=== PATIENT | male | born 1965 | race Caucasian/White ===

== ENCOUNTER 2019-04-10 09:32 | Day surgery (SDC) | payer OTHER, SELFPAY ==
[2019-04-09 15:42] VITALS: BMI 31.1
[2019-04-10 10:34] VITALS: BP 128/85; PULSE 73; RESP 18; TEMP 36.6; O2SAT 96
--- NOTE | 2019-04-10 10:38 | PM.HPUD ---
H&P update H&P Update: DATE OF SURGERY/PROCEDURE: 04/10/19 DATE H&P PERFORMED: 04/04/19 H&P UPDATE INFORMATION: H&P completed within last 30 days and No changes to prior documentation PREOP DIAGNOSIS: Screening colonoscopy and history of abdominal pain PLANNED PROCEDURE: Operation Date: 04/10/19 11:00 Proposed Procedures p Colonoscopy 57355 R10.9(Not Applicable) - Nam Dobson MD Full H&P Perinent History: Medical/Surgical History: Medical History (Updated 04/05/19 @ 09:12 by Nam Dobson MD) GERD (gastroesophageal reflux disease) (Acute) Hyperlipidemia (Acute) Family History: Family History (Updated 04/04/19 @ 10:21 by Hyacinth Treviño RN) Father Cancer Diabetes Mother Cancer Breast Grandmother Parkinson disease Denies family history of Anesthesia complication Bleeding disorder Social History: Social History Smoking and tobacco status: former smoker Quit status (tobacco): has quit using tobacco Second hand smoke exposure: No Alcohol intake: current Alcohol intake frequency: few times a week Adopted: No Caregiver/support person: No Lives independently: Yes Household members: none Housing: House Marital status: Highest education level completed: High School Graduate service: No Current occupational status: employed Current occupation: self employeed. Current occupational exposures/hazards: No Pets and animals: No History of recent travel: No Leisure activites: hunting and fishing Sexually active: Yes Are you practicing safe sex: Yes Current gender identity: Male Brooke/Faith: Oriental Orthodox Special brooke needs: No Agree to transfusion: No Financial difficulty paying for basics: Decline to Answer
[2019-04-10] MEDS: sodium chloride 0.9% 1,000 ML 30 ML (10:40)
--- NOTE | 2019-04-10 10:51 | ANES.PREANES ---
Pre-Anesthetic Assessment Pre-Anesthetic Assessment: Height/Weight: Height 1.83 m Weight 104.326 kg Temp Pulse Resp BP Pulse Ox 97.8 F 73 18 128/85 96 04/10/19 10:34 04/10/19 10:34 04/10/19 10:34 04/10/19 10:34 04/10/19 10:34 Preop Diagnosis: Screening colonoscopy and history of abdominal pain Proposed Procedure: Operation Date: 04/10/19 11:00 Proposed Procedures p Colonoscopy 48623 R10.9(Not Applicable) - Nam Dobson MD Was Beta Steven taken within 24 hours: N/A Last intake: Intake Last Liquid Date 04/09/19 Last Liquid Time 21:00 Last Solid Date 04/09/19 Last Solid Time 11:30 Social: Social History: No alcohol and No tobacco (quit 1 yr ago. was 1 pack/day) Exam: Pre-Anes Outpt Exam: alert, oriented x 3, clear to auscultation bilaterally and regular rate & rhythm Airway: Submandibular: WNL MP: 2 Dentition: Full History/ROS: No significant history except as noted and No significant complaints Pulmonary: Pulmonary: Sleep apnea (possible, never been tested. ) CV/HEM: CV/HEM: None reported : Comments: nocturia, frequency GI: GI: GERD (controlled) Metabolic: Metabolic: None reported Musc/skel: Musc/skel: None reported Neuropsych: Neuropsych: SANDRA Anesthetic Plan: ASA status: II Anesthesia: MAC Risk of > 500 ml blood loss (7ml/kg in children): No PFSH Anesthesia PFSH: Social History Smoking and tobacco status: former smoker Quit status (tobacco): has quit using tobacco Second hand smoke exposure: No Alcohol intake: current Alcohol intake frequency: few times a week Adopted: No Caregiver/support person: No Lives independently: Yes Household members: none Housing: House Marital status: Highest education level completed: High School Graduate service: No Current occupational status: employed Current occupation: self employeed. Current occupational exposures/hazards: No Pets and animals: No History of recent travel: No Leisure activites: hunting and fishing Sexually active: Yes Are you practicing safe sex: Yes Current gender identity: Male Brooke/Pentecostalism: Episcopal Special brooke needs: No Agree to transfusion: No Financial difficulty paying for basics: Decline to Answer Data Anesthesia Cardiac Studies: No Data to Display
[2019-04-10 12:04] VITALS: BP 119/89; PULSE 111; RESP 16; TEMP 36.4; O2SAT 93
[2019-04-10 12:10] VITALS: BP 100/77; PULSE 98; RESP 18; O2SAT 93
== END 2019-04-10 12:33 | disposition home or self-care (01) ==
PROVIDERS: Family Provider Family Medicine; PCP Family Medicine; Visit Provider Surgery
PROC: 0DJD8ZZ Inspection of Lower Intestinal Tract, Via Natural or Artificial Opening Endoscopic (ICD-10-PCS; CPT 45378; principal; 2019-04-10 11:00)
DX: Z12.11 Encounter for screening for malignant neoplasm of colon (principal); K57.30 Diverticulosis of large intestine without perforation or abscess without bleeding; Q27.33 Arteriovenous malformation of digestive system vessel; K21.9 Gastro-esophageal reflux disease without esophagitis; E78.5 Hyperlipidemia, unspecified; Z87.891 Personal history of nicotine dependence; G47.30 Sleep apnea, unspecified; Z79.891 Long term (current) use of opiate analgesic; Z83.3 Family history of diabetes mellitus
CPT/HCPCS: 12345; 45378; 96365; J2001; J2704; J7030

== ENCOUNTER → 2019-06-25 09:56 | Outpatient (BNVA) | payer OTHER, SELFPAY | PROVIDERS: Family Provider Family Medicine; PCP Family Medicine; Referring Provider Family Medicine; Visit Provider Nurse Practitioner Family | DX: N40.1 Benign prostatic hyperplasia with lower urinary tract symptoms (principal); N13.8 Other obstructive and reflux uropathy | CPT/HCPCS: 81001 ==

== ENCOUNTER 2019-09-23 02:30 | Emergency (ER) | payer OTHER, SELFPAY ==
[2019-09-23 02:34] VITALS: BP 138/94; PULSE 82; RESP 18; TEMP 36.4; O2SAT 94; BMI 31.8
[2019-09-23 02:57] LABS: Basophils # 0.1 10^3/uL (0.0-0.1); Basophils % 0.7 %; Eosinophils # 0.1 10^3/uL (0.0-0.8); Eosinophils % 1.5 %; Hematocrit 43.9 % (42.0-52.0); Hemoglobin 14.4 g/dL (11.7-16.6); Lymphocytes # 1.8 10^3/uL (0.8-4.8); Lymphocytes % 25.3 %; Mean Corpuscular HGB Conc 32.8 g/dL (30.0-36.0); Mean Corpuscular Hemoglobin 33.1 pg (28.0-34.0); Mean Corpuscular Volume 100.9 fL (80-94); Monocytes # 0.6 10^3/uL (0.2-0.9); Monocytes % 8.5 %; Neutrophils # 4.58 10^3/uL (1.8-7.7); Neutrophils % 63.7 %; Nucleated Red Blood Cells % 0 %; Platelet Count 142 10^3/cmm (130-400); Red Blood Count 4.35 10^6/uL (4.1-5.3); Red Cell Distribution Width 12.7 % (12.1-15.1); White Blood Count 7.2 10^3/uL (4.0-10.0)
[2019-09-23 03:12] LABS: Alanine Aminotransferase 45 U/L (0-41); Albumin Level 4.6 g/dL (3.5-5.2); Alkaline Phosphatase 69 IU/L (40-130); Anion Gap 13.1 (5-19); Aspartate Amino Transferase 24 U/L (0-40); Blood Urea Nitrogen 16 mg/dL (6-20); Carbon Dioxide 27 mmol/L (22-29); Chloride 105 mmol/L (98-107); Globulin 2.2 g/dL (1.3-4.6); Glomerular Filtration Rate 78.2 mL/min (90-130); Glucose 103 mg/dL (65-115); Lipase 61 U/L (13-60); Osmolality Calculated 289 mOsm/kg (285-295); Potassium 4.1 mmol/L (3.5-5.1); Sodium 141 mmol/L (136-145); Total Bilirubin 0.3 mg/dL (0.15-1.2); Total Protein 6.8 g/dL (6.6-8.7)
--- NOTE | 2019-09-23 03:29 | CTR_ITS ---
PROCEDURE INFORMATION: Exam: CT Abdomen And Pelvis With Contrast Exam date and time: 09/23/2019 3:47 AM Age: 54 years old Clinical indication: Nausea; Abdominal pain; Localized; Right; Prior surgery; Surgery date: 6+ months; Surgery type: Hernia; Additional info: Abd pain TECHNIQUE: Imaging protocol: Computed tomography of the abdomen and pelvis with intravenous contrast. Radiation optimization: All CT scans at this facility use at least one of these dose optimization techniques: automated exposure control; mA and/or kV adjustment per patient size (includes targeted exams where dose is matched to clinical indication); or iterative reconstruction. Contrast material: OMNI 300; Contrast volume: 95 ml; Contrast route: INTRAVENOUS (IV); COMPARISON: CT abdomen pelvis w con* [id number] 01/17/2014 9:26 PM RADIATION DOSE METRICS: Total DLP (mGy-cm): 1626.27 FINDINGS: Liver: There is hypoattenuation of the hepatic parenchyma compatible with fatty infiltration. Gallbladder and bile ducts: There are 2 hyperdensities seen in the gallbladder neck compatible with small gallstones. There are no inflammatory changes present to suggest cholecystitis. Pancreas: Normal. No ductal dilation. Spleen: Normal. No splenomegaly. Adrenals: Normal. No mass. Kidneys and ureters: There are small bilateral simple appearing renal cysts, the largest is seen on the left anteriorly measuring 10 mm. Stomach and bowel: There is some dilatation of the transverse portion of the duodenum. There are nondilated fluid-filled loops of small bowel seen distally, findings that could represent a mild ileus. Diverticula are present on the descending and sigmoid colon. There are no inflammatory changes seen to suggest diverticulitis. Appendix: The appendix is visualized and is normal in configuration. Intraperitoneal space: Unremarkable. No free air. No significant fluid collection. Vasculature: Unremarkable. No abdominal aortic aneurysm. Lymph nodes: Unremarkable. No enlarged lymph nodes. Bladder: Unremarkable as visualized. Reproductive: Unremarkable as visualized. Bones/joints: Unremarkable. No acute fracture. Soft tissues: Unremarkable. CT/CT abdomen pelvis w con* [id number] IMPRESSION: 1. Mildly dilated transverse portion of the duodenum and some nondilated fluid-filled loops of small bowel are present distally, findings that could represent mild ileus. 2. Fatty infiltration of the liver 3. Small gallstones without evidence of cholecystitis 4. Diverticulosis of the descending and sigmoid colon without evidence of diverticulitis. 5. Tiny bilateral simple appearing renal cysts, the largest measuring 10 mm on the left. No further workup needed. COMMENTS: Consistent with the [employer]'s Incidental Findings Committee white paper (J Am Les Radiol 2018): Any incidental renal lesion less than 1.0 cm or classified as too small to characterize, or any incidental cystic renal lesion characterized as simple-appearing, is likely benign. No follow-up imaging is recommended for these lesions per consensus recommendations based on imaging criteria. Radiation Dose CTDIVOL = (mGy): DLP = 1626.27 (mGy-cm)
[2019-09-23 03:47] VITALS: RESP 18; O2SAT 96
[2019-09-23 03:47] LABS: Add Urine Microscopic? NO
[2019-09-23] MEDS: HYDROmorphone 1 mg/mL INJ 1 mL IVP (03:47)
[2019-09-23] MEDS: ondansetron 2 mg/ML SDV 2 mL 4 MG IVP (03:47)
--- NOTE | 2019-09-23 03:47 | W.ED.ABDPA2 ---
HPI - Abdominal Pain General: Chief Complaint: Abdominal Pain Stated Complaint: abd pain Time Seen by Provider: 09/23/19 03:21 History of Present Illness: HPI narrative: 54-year-old male with intermittent abdominal pain for years . It worsened yesterday evening and through this morning. He notes his pain to be on the right side. He was diagnosed with diverticulosis and prostate problems more recently. He has not been back to his primary physician or his urologist. His pain was much worse tonight. He is nauseated. No vomiting or diarrhea. He took hydrocodone without improvement no fever. MD elicited complaint: abdominal pain Pertinent past history: constipation and diverticulitis Onset (ago): day(s) Pain Consistency: constant Location: Diffuse, RUQ and RLQ Severity: moderate Quality: cramping, stabbing and aching Radiation: back Migration to: no migration Exacerbating factors: movement Relieving factors: nothing Associated Symptoms: Reports bloating; Denies chills, diarrhea, fever(s), hematuria, nausea and vomiting Review of Systems Const: Denies: fever(s) or chills Eyes: Denies: change in vision ENMT: Denies: swelling of lips/tongue, change in hearing or sinus pain Card: Denies: chest pain, palpitations, irregular heart rhythm or edema Resp: Denies: dyspnea, productive cough, non-productive cough or wheezing GI: Reports: bloating; Denies: nausea, vomiting or diarrhea : Denies: hematuria Musc: Reports: back pain; Denies: neck pain or joint redness Skin/Breast: Denies: rash or erythema Neuro: Denies: headache(s), dizziness or vertigo Psych: Denies: anxiety [facility] PFSH: Medical History (Updated 09/23/19 @ 04:34 by Jimmy Robertson DO) BPH w urinary obs/LUTS GERD (gastroesophageal reflux disease) Hyperlipidemia Surgical History Abdominal pain History of hernia surgery (09/19/09) umbilical and ventral hernia repair with mesh placement Family History Father Cancer Diabetes Mother Cancer Breast Grandmother Parkinson disease Denies family history of Anesthesia complication Bleeding disorder Social History (Reviewed 06/25/19 @ 11:43 by RAY Pacheco Smoking and tobacco status: former smoker Quit status (tobacco): has quit using tobacco Second hand smoke exposure: No Alcohol intake: current Alcohol intake frequency: few times a week Adopted: No Caregiver/support person: No Lives independently: Yes Household members: none Housing: House Marital status: Highest education level completed: High School Graduate service: No Current occupational status: employed Current occupation: self employeed. Current occupational exposures/hazards: No Pets and animals: No History of recent travel: No Leisure activites: hunting and fishing Sexually active: Yes Are you practicing safe sex: Yes Current gender identity: Male Brooke/Pentecostalism: Yazidism Special brooke needs: No Agree to transfusion: No Financial difficulty paying for basics: Decline to Answer Physical Exam Const: GENERAL APPEARANCE: well developed ORIENTATION/CONSCIOUSNESS: Yes oriented to person, Yes oriented to place and Yes oriented to time HENMT: COMMON NORMALS: normocephalic, external ears normal and Normal external nose present HEAD & SCALP: normocephalic FACE & SINUS: normal facial exam NOSE: Normal external nose present and No nasal discharge present EXTERNAL EAR: Yes external ears normal THROAT: posterior oropharynx normal; no peritonsillar mass Eye: COMMON NORMALS: Equal, round and reactive pupils present, EOMs intact bilaterally and conjunctivae normal EYELID: eyelids normal CONJUNCTIVA: Yes conjunctivae normal PUPIL: Yes Equal, round and reactive pupils present Neck/C-Spine: GENERAL: No tracheal deviation Chest: COMMONS NORMALS: normal inspection of the chest CHEST: No tenderness Resp: COMMON NORMALS: clear to auscultation bilaterally EFFORT & INSPECTION: No tachypneic, No respiratory distress, No retractions, No uses accessory muscles and No tracheal deviation AUSCULTATION: clear to auscultation bilaterally, no rhonchi, no wheezes and lung sounds not diminished Cardio: COMMON NORMALS: regular rate and regular rhythm RATE: regular rate RHYTHM: regular rhythm HEART SOUNDS: no murmurs PERIPHERAL PULSES: radial pulses present GI: INSPECTION: Yes abdominal distension AUSCULTATION: No Hyperactive bowel sounds present and Yes Hypoactive bowel sounds present PALPATION: Yes Tenderness to palpation present (GI) Details: RLQ and RUQ, No Guarding due to palpation present (GI) and No Rigid due to palpation PERCUSSION: no dullness to percussion and tympanic to percussion Neuro: SENSORIUM/ORIENTATION: Yes oriented to person, Yes oriented to place and Yes oriented to time Psych: COMMON NORMALS: mental status grossly normal Skin: COMMON NORMALS: no rashes or lesions noted GENERAL SKIN EXAM: no rashes or lesions noted Course Vital Signs: Vital signs: Vital Signs Temperature 97.5 F L 09/23/19 02:34 Pulse Rate 83 09/23/19 04:45 Respiratory Rate 18 09/23/19 04:45 Blood Pressure 123/81 09/23/19 04:45 Pulse Oximetry 96 09/23/19 04:45 MDM - Abdominal Pain MDM Narrative: Medical decision making narrative: 54-year-old male with right-sided belly pain, intermittent. He has had pain for a couple of days now. Some. Somewhat associated with meals. His white blood cell count is normal. Liver enzymes are normal. CT reveals stones in the neck of his gallbladder with some gallbladder distention. He also has a distended duodenum without any free air. Common bile duct is normal. I suspect biliary colic in this patient. We will place an outpatient surgery referral for further evaluation. He does not appear to have acute cholecystitis at this point. He will be allowed discharge. Lab Data: Labs: Lab Results 09/23/19 09/23/19 09/23/19 Range/Units 02:46 02:46 03:38 WBC 7.2 (4.0-10.0) 10^3/ uL RBC 4.35 (4.1-5.3) 10^6/u L Hgb 14.4 (11.7-16.6) g/dL Hct 43.9 (42.0-52.0) % MCV 100.9 H (80-94) fL MCH 33.1 (28.0-34.0) pg MCHC 32.8 (30.0-36.0) g/dL RDW 12.7 (12.1-15.1) % Plt Count 142 (130-400) 10^3/c mm MPV 12.0 H (7.4-10.4) fL Neut % (Auto) 63.7 % Lymph % (Auto) 25.3 % [place] % (Auto) 8.5 % Eos % (Auto) 1.5 % Baso % (Auto) 0.7 % Neut # (Auto) 4.58 (1.8-7.7) 10^3/u L Lymph # (Auto) 1.8 (0.8-4.8) 10^3/u L [place] # (Auto) 0.6 (0.2-0.9) 10^3/u L Eos # (Auto) 0.1 (0.0-0.8) 10^3/u L Baso # (Auto) 0.1 (0.0-0.1) 10^3/u L Nucleated RBC % (a uto) 0 % Nucleated RBCs # 0.0 /100WBC Sodium 141 (136-145) mmol/L Potassium 4.1 (3.5-5.1) mmol/L Chloride 105 (98-107) mmol/L Carbon Dioxide 27 (22-29) mmol/L Anion Gap 13.1 (5-19) BUN 16 (6-20) mg/dL Creatinine 1.0 (0.7-1.2) mg/dL GFR Calculation 78.2 L (90-130) mL/min Glucose 103 (65-115) mg/dL Calculated Osmolal ity 289 (285-295) mOsm/k g Calcium 10.0 (8.5-10.5) mg/dL Total Bilirubin 0.3 (0.15-1.2) mg/dL AST 24 (0-40) U/L ALT 45 H (0-41) U/L Alkaline Phosphata se 69 (40-130) IU/L Total Protein 6.8 (6.6-8.7) g/dL Albumin 4.6 (3.5-5.2) g/dL Globulin 2.2 (1.3-4.6) g/dL Lipase 61 H (13-60) U/L Urine Color Yellow (Yellow) Urine Appearance Clear (CLEAR) Urine pH 6 (5-7) Ur Specific Gravit y 1.020 (1.005-1.030) Urine Protein Neg (Negative) Urine Glucose (UA) Norm (Normal) Urine Ketones Negative (Negative) Urine Blood Neg (Negative) Urine Nitrate Negative (Negative) Urine Bilirubin Neg (NEGATIVE) Urine Urobilinogen Norm (Negative) mg/dL Ur Leukocyte Sveta ase Negative (Negative) Discharge Plan Discharge Patient Disposition: Home, Self-Care Clinical Impression: Biliary colic Condition: Stable Prescriptions: New Zofran 4 mg tablet 4 mg PO Q6H PRN (Reason: nausea and vomiting) Qty: 10 RF: 0 No Action hydrocodone-acetaminophen 10-325 mg tablet 1 tab PO Q4H PRN (Reason: Back Pain) RF: 0 loratadine-pseudoephedrine [Allergy and Congestion Relief] 10-240 mg tablet extended release 24 hr 1 tab PO QDAY PRN (Reason: Allergy Symptoms) RF: 0 meloxicam 15 mg tablet 15 mg PO QDAY RF: 0 atorvastatin 40 mg tablet 40 mg PO QDAY RF: 0 azelastine 137 mcg (0.1 %) aerosol,spray 2 spray INTRANASAL BID PRN (Reason: Allergy Symptoms) RF: 0 omeprazole-sodium bicarbonate [Zegerid OTC] 20-1.1 mg-gram capsule 1 cap PO QDAY RF: 0 fluticasone propionate 50 mcg/actuation spray,suspension 1 spray INTRANASAL DAILY RF: 0 silodosin 8 mg capsule 8 mg PO DAILY Qty: 30 RF: 12 Discharge Orders: Discharge Order (Routine); Ordered 09/23/19 Ordered By: Jimmy Robertson Referrals: Nam Dobson MD [Physician] - 4-7 days Denisse Carr DO [Primary Care Provider] - Discharge Diet: Advance as tolerated and Clear Liquid Discharge Activity: Increase activity as tolerated Patient Instructions: Biliary Colic (ED), Abdominal Pain (ED) Activity Restrictions/Additional Instructions: Return for fever greater than 100, vomiting liquids or medications, worsening pain despite treatment, other concerning symptoms. Case management referral has been placed to get you a surgery clinic appointment. You may also call on your own using the above contact information. Discharge Date/Time: 09/23/19 04:46 Coding Level of Care Code ED Broadcast Traffic Coordinator for Chg Fwd Exam Comprehensive
[2019-09-23] MEDS: iohexol 300 mg/mL 100 mL Btl IV (03:59)
[2019-09-23 04:02] LABS: Bilirubin Urine Neg (NEGATIVE); Blood Urine Neg (Negative); Glucose Urine UA Norm (Normal); Ketones Urine Negative (Negative); Leukocyte Esterase Urine Negative (Negative); Nitrate Urine Negative (Negative); Protein Urine Neg (Negative); Urine Appearance Clear (CLEAR); Urine Color Yellow (Yellow); Urobilinogen Urine Norm (Negative); pH Urine 6 (5-7)
--- NOTE | 2019-09-23 04:11 | PC.NURSE ---
i agree with this assessment .
[2019-09-23] MEDS: ketorolac 30 mg/mL INJ IVP (04:35)
[2019-09-23 04:45] VITALS: BP 123/81; PULSE 83; RESP 18; O2SAT 96
--- NOTE | 2019-09-23 10:06 | DCPLANNER ---
clinical team manager had message to schedule a follow up appointment for patient with general surgery. clinical team manager called [facility], spoke with Loreta, gave clinic patients information. clinical team manager was told that patients information would be printed and reviewed. Clinic will call patient with appointment information.
--- NOTE | 2019-09-24 08:17 | DCPLANNER ---
Patient had an appointment scheduled for 09.23.19 at [facility], patient did attend the appointment.
== END 2019-09-23 04:46 | disposition home or self-care (01) ==
PROVIDERS: Physician Assistant; Emergency Provider Emergency Medicine; PCP Family Medicine
DX: K80.50 Calculus of bile duct without cholangitis or cholecystitis without obstruction (principal); Z87.891 Personal history of nicotine dependence; E78.5 Hyperlipidemia, unspecified
CPT/HCPCS: 12345; 74177; 80053; 81003; 83690; 85025; 96374; 96375; 99283; J1170; J1885; J2405; Q9967

== ENCOUNTER → 2019-10-02 13:27 | Outpatient (BNVA) | payer OTHER, SELFPAY | PROVIDERS: PCP Family Medicine; Visit Provider Urology | DX: N13.8 Other obstructive and reflux uropathy (principal); N40.1 Benign prostatic hyperplasia with lower urinary tract symptoms | CPT/HCPCS: 81001 ==

== ENCOUNTER 2019-10-08 06:50 | Outpatient (CLI) | payer OTHER, SELFPAY ==
--- NOTE | 2019-10-08 07:15 | US_ITS ---
WS: [id number] ULTRASOUND ABDOMEN LIMITED CLINICAL INFORMATION: abdominal pain COMPARISON: None. FINDINGS: Liver Size: Enlarged Craniocaudal length: 19.4 cm. Echogenicity: Fatty Surface nodularity: None. Mass (size and location): None. Bile ducts Intrahepatic ducts: Normal. Common bile duct diameter: 0.5 cm. Gallbladder Cholelithiasis Gallstones: Present Gallbladder sludge: None. Gallbladder wall thickening: None. Pericholecystic fluid: None. Sonographic Echeverria sign: Absent. Pancreas Normal as visualized. Right kidney: Normal. Hydronephrosis: None. Size: 12.0 cm x 5.1 cm x 4.5 cm. Abdominal aorta and IVC Visualized portions are normal. Ascites: None. US/US gall bladder 52009 IMPRESSION: 1. Hepatomegaly with diffuse fatty infiltration. 2. Cholelithiasis. No pericholecystic fluid or gallbladder wall thickening. 3. Normal common bile duct. 4. No hydronephrosis in right kidney.
== END 2019-10-08 06:51 | disposition home or self-care (01) ==
LOC: RAD 06:50
PROVIDERS: PCP Family Medicine; Visit Provider Surgery
DX: R10.9 Unspecified abdominal pain (principal); R16.0 Hepatomegaly, not elsewhere classified; K76.0 Fatty (change of) liver, not elsewhere classified; K80.20 Calculus of gallbladder without cholecystitis without obstruction
CPT/HCPCS: 76705

== ENCOUNTER 2019-10-22 20:00 | Outpatient (CLI) | payer OTHER, SELFPAY | END 2019-10-22 20:01 | disposition home or self-care (01) | LOC: SLEEP 10-23 08:22 | PROVIDERS: PCP Family Medicine; Visit Provider Family Medicine | DX: G47.33 Obstructive sleep apnea (adult) (pediatric) (principal) | CPT/HCPCS: 95810 ==

== ENCOUNTER 2019-10-28 06:18 | Day surgery (SDC) | payer OTHER, SELFPAY ==
[2019-10-25 10:13] VITALS: BMI 28.5
[2019-10-28] VITALS (11 sets, daily range): BP systolic 98–118; BP diastolic 67–81; PULSE 68–78; RESP 12–18; TEMP 36.2–36.4; O2SAT 95–100
[2019-10-28] MEDS: heparin 5,000 unit/mL INJ 1 mL 3000 UNIT SUBCUT (06:47)
[2019-10-28] MEDS: sodium chloride 0.9% 1,000 ML 30 ML IV (06:47)
--- NOTE | 2019-10-28 07:06 | P.ANESASSM_ITS ---
Pre-Anesthetic Assessment Pre-Anesthetic Assessment: Height/Weight: Height 1.85 m Weight 97.976 kg Temp Pulse Resp BP Pulse Ox 97.4 F L 78 18 117/78 95 10/28/19 06:25 10/28/19 06:25 10/28/19 06:25 10/28/19 06:25 10/28/19 06:25 Preop Diagnosis: Symptomatic cholelithiasis Proposed Procedure: Operation Date: 10/28/19 07:45 Proposed Procedures p Laparoscopic Cholecystectomy 73252 K80.20(Not Applicable) - Nam Dobson MD Was Beta Steven taken within 24 hours: N/A Last intake: Intake Last Liquid Date 10/27/19 Last Solid Date 10/27/19 Last Intake: 01:00 Social: Social History: Tobacco and No alcohol Exam: Pre-Anes Outpt Exam: alert, oriented x 3, clear to auscultation bilaterally and regular rate & rhythm Airway: Submandibular: WNL Cervical ROM: WNL MP: 2 Dentition: Full History/ROS: No significant history except as noted Pulmonary: Pulmonary: COPD CV/HEM: CV/HEM: None reported : : None reported Hepatic: Hepatic: None reported GI: GI: GERD Metabolic: Metabolic: None reported Musc/skel: Musc/skel: Lower Back Pain Comments: Chronic pain/meds Neuropsych: Neuropsych: None reported Anesthetic Plan: ASA status: 3 Anesthesia: General Meds/Allergies Current Medications: Current Medications Generic Name Dose Route Start Last Admin Trade Name Freq PRN Reason Stop Dose Admin Sodium Chloride 1,000 mls @ 30 ml s/hr 10/28/19 06:30 10/28/19 06:47 Sodium Chloride 0.9% IV 10/29/19 06:29 30 mls/hr .Q24H ASIF Administration PFSH Anesthesia PFSH: Medical History BPH w urinary obs/LUTS GERD (gastroesophageal reflux disease) Hyperlipidemia Surgical History Abdominal pain History of hernia surgery (09/19/09) umbilical and ventral hernia repair with mesh placement Family History Father Cancer Diabetes Mother Cancer Breast Grandmother Parkinson disease Denies family history of Anesthesia complication Bleeding disorder Social History Smoking and tobacco status: former smoker Quit status (tobacco): has quit using tobacco Second hand smoke exposure: No Alcohol intake: current Alcohol intake frequency: few times a week Adopted: No Caregiver/support person: No Lives independently: Yes Household members: none Housing: House Marital status: Highest education level completed: High School Graduate service: No Current occupational status: employed Current occupation: self employeed. Current occupational exposures/hazards: No Pets and animals: No History of recent travel: No Leisure activites: hunting and fishing Sexually active: Yes Are you practicing safe sex: Yes Current gender identity: Male Brooke/Roman Catholic: U[place] Special brooke needs: No Agree to transfusion: No Financial difficulty paying for basics: Decline to Answer Data Anesthesia Cardiac Studies: No Data to Display
--- NOTE | 2019-10-28 07:45 | W.PM.OPSUD ---
Surgery/Procedure H&P Update DATE OF PROCEDURE: October 28, 2019 DATE H&P PERFORMED: 10/09/19 H&P UPDATE INFORMATION: I have reviewed H&P completed within last 30 days, I have examined patient prior to procedure and Changes to prior documentation as noted here (Patient reports that he lost 14 pounds on liquid protein diet.) PREOP DIAGNOSIS: Symptomatic cholelithiasis PRIMARY INDICATION FOR PROCEDURE: The same PLANNED PROCEDURE: Operation Date: 10/28/19 07:45 Proposed Procedures p Laparoscopic Cholecystectomy 85861 K80.20(Not Applicable) - Nam Dobson MD
[2019-10-28] MEDS: lidocaine 2% INJ 20 mL INJECTION (08:57)
--- NOTE | 2019-10-28 09:03 | P.OP_ITS ---
Operative Report Date of procedure: October 28, 2019 Pre-op Diagnosis: Symptomatic cholelithiasis Post-op diagnosis: other (Chronic calculus cholecystitis) Post-op Findings: Stable mesh appearance on a previous repair of ventral abdominal wall hernia with out exposure Procedure Done: Laparoscopic cholecystectomy Specimens removed/disposition: Gallbladder and contents Surgeon: Nam Dobson Accounts Payable Administrator: Surgical zion Thomas Circulating nurse Anabel Anesthesia: General (russian rubber Silvia) Estimated blood loss (mL): 10 Condition: stable Disposition: same day Brief History: This is a pleasant 54 years old gentleman referred to my office with history of right upper quadrant abdominal pain with fatty dyspepsia history and associated gallbladder stones on CT scan and ultrasound findings. Plan of care; After thorough history physical examination and reviewing the chart ,I counseled the patient for laparoscopic cholecystectomy possible open, indications risks including but not limited injury to the common bile duct and other viscera.benefits and alternatives all discussed with the patient, and she did agree to proceed. All questions have been answered and all concerns have been addressed to patient's satisfaction. Rationale was carefully and clearly discussed with the patient.Appropriate informed consent have been reviewed and signed. Procedure: Patient was identified in the holding area and taken back to the operative suite, placed in supine position intubated by anesthesia . Time-out was done verifying the patient's name/date of /planned procedure and destination after the procedure, all were in agreement. SCDs confirmed to be functioning, preoperative antibiotics administered per protocol, and beta mu protocol was confirmed. Patient was appropriately secured to the table, footboard was applied to the OR table, before prep and drape anesthesia was asked to tilt the table back and forth to make sure that the patient is appropriately secured and she was. Prep and drape of the abdomen was done under the usual sterile technique, follow ed by that infraumbilical skin incision,skin incision was done by a 15 blade knife, and stay sutures were applied to the fascia and Basilio trocar technique was used to enter the abdominal without injuring any abdominal viscera, started by low flow gas insufflation followed by a high flow, started with a 10 mm laparoscope and under direct vision there was no evidence of any injuries, the scope then switched to a 30? ,10 millimeter scope and under direct visualization 5 millimeter trocar was inserted in the epigastric region followed by two 5 mm trocars were inserted in the right upper quadrant that was done after injection of local lidocaine 2% at all incision sites. Gallbladder showed chronic calculus cholecystitis with mild to moderate fatty liver Patient was then positioned in the head up and tilted to the left Ratcheted forceps were introduced into the lateral most 5mm port and was applied unto the fundus of the gallbladder cephalad and using Bullet forceps the infundibulum of the gallbladder was retracted laterally. Using [place] forceps then L-hook cautery to dissect the peritoneum overlying the Calot's triangle whihc was then opened medially and laterally until the cystic duct and the cystic artery were skeletonized. Dissection was carried along the body of the gallbladder and after ensuring critical view of safety was identfied. Cystic duct and cystic artery where seen connected to the gallbladder. Clips were applied on the cystic duct towards the common bile duct 1 towards the gallbladder then divided is in sharp scissors, 2 clips were then applied onto the cystic artery and 1 towards the gallbladder and divided by sharp scissors. Dissection was then carried along of the gallbladder from the gallbladder fossa using cautery as well as sharp dissection with heat energy. The gallbladder then was dissected out from the gallbladder fossa totally , cholecystectomy was then achieved and was placed in an Endo Catch bag and then retrieved from the Basilio trocar site under direct visualization using a 5 mm 30? scope through the epigastric trocar, specimen was then passed to the circulating nurse to go for permanent pathology,irrigation and hemostasis was done to the gallbladder fossa after hemostasis was secured, final survey laparoscopy was done that showed no injuries. Suction irrigation was obtained Additional traversing vessel was clipped The infraumbilical fascial defect was then closed using interrupted 1 PDS sutures using a fascial closure device ;Levon Castanon under direct visualization Gas was allowed to deflate,Trocars were then taken out under direct vision there was no evidence of bleeding Specimen was passed to the circulating nurse for permanent pathology. No drains were placed and the infrumbilical incision as well as all trocar sites were closed by by 4-0 Monocryl to approximate the skin edges of the infraumbilical incision, dressing was applied in the form of surgical glue and the patient patient got extubated and was taken to recovery area in a stable condition. Count of sponges, needles and instruments were completed at the end of the procedure I was present for the whole entire procedure.
[2019-10-28] MEDS: fentaNYL 50 mcg/mL INJ 2mL IVP ×2 (09:22→09:27)
[2019-10-28] MEDS: ondansetron 2 mg/ML SDV 2 mL 4 MG IVP (09:22)
--- NOTE | 2019-10-28 09:55 | PM.PACU ---
PACU note PACU note: VSS, good pain control. Post-Anesthesia Exam: awake Disposition: discharged
== END 2019-10-28 11:06 | disposition home or self-care (01) ==
PROVIDERS: PCP Family Medicine; Visit Provider Surgery
PROC: 0FT44ZZ Resection of Gallbladder, Percutaneous Endoscopic Approach (ICD-10-PCS; CPT 47562; principal; 2019-10-28 07:45)
DX: K80.10 Calculus of gallbladder with chronic cholecystitis without obstruction (principal); K76.0 Fatty (change of) liver, not elsewhere classified; J44.9 Chronic obstructive pulmonary disease, unspecified; K21.9 Gastro-esophageal reflux disease without esophagitis; N40.0 Benign prostatic hyperplasia without lower urinary tract symptoms; N13.8 Other obstructive and reflux uropathy; E78.5 Hyperlipidemia, unspecified; Z87.891 Personal history of nicotine dependence
CPT/HCPCS: 47562; 12345; 88304; 96365; 96372; J0131; J0690; J1100; J1644; J2405; J2704; J2710; J3010; J3490; J7030

== ENCOUNTER → 2020-03-27 11:40 | Outpatient (BNVA) | payer OTHER, SELFPAY | PROVIDERS: PCP Family Medicine; Visit Provider Nurse Practitioner Family | DX: Z20.828 Contact with and (suspected) exposure to other viral communicable diseases (principal); J06.9 Acute upper respiratory infection, unspecified | CPT/HCPCS: 87635 ==

== ENCOUNTER → 2021-12-27 16:55 | Outpatient (BNVA) | payer OTHER, SELFPAY | PROVIDERS: PCP Family Medicine; Visit Provider Registered Nurse Neonatal Intensive Care | DX: M17.12 Unilateral primary osteoarthritis, left knee (principal); M25.562 Pain in left knee | CPT/HCPCS: 73562 ==

== ENCOUNTER 2023-01-25 10:59 | Outpatient (CLI) | payer OTHER, SELFPAY ==
--- NOTE | 2023-01-25 11:03 | CT_ITS ---
WS: [id number] LDCT LUNG CANCER SCREENING TECHNIQUE: Noncontrast CT of the chest with coronal and sagittal reformatted images. CLINICAL INFORMATION: HX OF TOBACCO USE/NICOTINE DEPENDENCE, CIGARETTES COMPARISON: None. DLP: 121.07 mGy.cm DIvol: Mean CTDIvol: 2.50 (mGy) All CT scans at [facility] use at least one of these dose optimization techniques: automat ed exposure control; mA and/or kV adjustment per patient size (includes targeted exams where dose is matched to clinical indication); or iterative reconstruction. FINDINGS: Lungs are well aerated. No suspicious pulmonary parenchymal opacities. Normal caliber thoracic aorta. No mediastinal or hilar lymphadenopathy. No axillary lymphadenopathy. Cholecystectomy clips. Adrenal glands are normal. Normal GE junction. IMPRESSION: CT/CT lung screening [id number] LUNG-RADS: 1-Negative FOLLOW UP: 12 Month: Continue annual screening with LDCT
== END 2023-01-25 11:00 | disposition home or self-care (01) ==
LOC: RAD 11:00
PROVIDERS: PCP Family Medicine; Visit Provider Family Medicine
DX: Z12.2 Encounter for screening for malignant neoplasm of respiratory organs (principal); Z87.891 Personal history of nicotine dependence
CPT/HCPCS: 71271

== ENCOUNTER 2023-02-13 11:55 | Outpatient (CLI) | payer OTHER, SELFPAY ==
--- NOTE | 2023-02-13 12:17 | XRR_ITS ---
PROCEDURE INFORMATION: Exam: XR Lumbosacral Spine Exam date and time: 02/13/2023 12:20 PM Age: 57 years old Clinical indication: Low back pain; Additional info: History of compression fracture TECHNIQUE: Imaging protocol: Radiologic exam of the lumbosacral spine. Views: 2 or 3 views. COMPARISON: CT abdomen pelvis w con* [id number] 09/23/2019 3:51 AM FINDINGS: Bones/joints: Mild left curvature. 30% upper endplate compression of L3 is old as there is osteophytic spurring at that level. It was also present on a CT scan from 09/23/2019. Mild L5-S1 disc space narrowing without significant spurring. No acute fracture. Normal alignment. Soft tissues: Unremarkable. Organs: Prior cholecystectomy. XR/XR lumbar spine 2-3V* [id number] IMPRESSION: No acute findings.
== END 2023-02-13 11:56 | disposition home or self-care (01) ==
LOC: RAD 11:56
PROVIDERS: PCP Family Medicine; Visit Provider Family Medicine
DX: Z87.81 Personal history of (healed) traumatic fracture (principal)
CPT/HCPCS: 72100